=== PATIENT | male | born 1995 | race African-American/Black ===

== ENCOUNTER 2024-12-10 02:18 | Emergency (ER) | payer MEDICAID, SELFPAY ==
--- NOTE | ~2024-12-10 | XR_ITS ---
CLINICAL HISTORY: Multiple Lacerations; R o FB 2 view left femur Comparison: None provided Findings: No fractures or dislocations. No knee effusion. No significant arthritic change. No radiopaque foreign body. IMPRESSION: 1. Normal left femur This document has been electronically signed by: Michael Louise MD on 12/10/2024 04:30:15
[2024-12-10 02:24] VITALS: BP 138/88; PULSE 77; O2SAT 96
[2024-12-10 02:28] VITALS: BP 143/78; PULSE 63; RESP 20; TEMP 36.6; O2SAT 95; BMI 31.4
--- NOTE | 2024-12-10 02:52 | ED_ITS ---
HPI - Wound/Laceration General Chief Complaint: Wound/Laceration Stated Complaint: ETOH , leg injury , uncooperative Time Seen by Provider: 12/10/24 02:40 Source: patient Mode of arrival: ambulatory Limitations: no limitations History of Present Illness ED Provider: Emilio GOODE HPI narrative: The patient is a 29-year-old male presenting to the ED intoxicated reporting he drank alcohol and use marijuana, patient reports he leaned up against a window that broke and he fell through the window. Patient reports sustaining lacerations to the left thigh and right calf. Of note patient was found by EMS to be arguing with PD and EMS reports patient's story regarding how the injury occurred has changed multiple times. Related Data Allergies Allergy/AdvReac Type Severity Reaction Status Date / Time No Known Allergies Allergy Verified 12/10/24 02:38 Review of Systems Review of Systems: Yes all other systems are reviewed and are negative PMFSH Social History Social History Smoked in Last 30 Days: Yes Use of substances other than those prescribed or required for medical reasons: Yes Substance Use Type: Crack/Cocaine and Marijuana Advance Directives: No Advance Directives Information Provided: Yes Physical Exam Vital Signs: Vital Signs: Last Vital Signs Temp 97.5 F 12/10/24 06:08 Pulse 63 12/10/24 06:08 Resp 20 12/10/24 06:08 BP 129/72 12/10/24 06:08 Pulse Ox 98 12/10/24 06:08 O2 Del Method Room Air 12/10/24 06:08 BMI result Body Mass Index 31.4 CONSTITUTIONAL: The patient appears clinically intoxicated, otherwise non-toxic, well nourished and in no acute distress. Vital signs as documented. HEAD: Atraumatic, normocephalic. EYES: EOMs grossly intact, pupils equal, conjunctiva clear, no exudate. ENT: Nares patent, no discharge. Airway patent, no audible stridor, visible mucosa is pink and moist without noted lesions. NECK: trachea is midline, no obvious masses or gross abnormalities. CHEST: Symmetric movement, normal appearance. LUNGS: Non-labored work of breathing. CARDIAC: No evidence of hypoperfusion. ABDOMEN: Nondistended, no obvious injury. : Deferred. EXTREMITIES: There is a single superficial 4 cm laceration noted to the right posterior calf. There are 3 linear lacerations, all approximately 2-3 cm in length noted to the left anterolateral thigh. Distal CSM intact. Moves all extremities spontaneously without reported pain. No other obvious injury or deformity noted. NEURO: Alert and oriented x3, CN II-XII appear grossly intact. Cerebellar Functioning grossly intact. Speech clear and appropriate. SKIN: Warm, dry, color appropriate. No rashes or lesions noted. Course Course Course Narrative: GCS 15 stable for DC, clinically sober MC 12/10/24 856am Medications Administered Discontinued Medications Generic Name Dose Route Start Last Admin Trade Name Stacie PRN Reason Stop Dose Admin Bacitracin 1 appl 12/10/24 04:20 12/10/24 04:26 Bacitracin Oint 0.9 Gm Packet TOPICAL 12/10/24 04:21 1 appl ONCE ONE Administration Protocol Lidocaine/Epinephrine 10 ml 12/10/24 03:03 12/10/24 04:27 Lidocaine Hcl 2% Pf/Epi 1:200 20 Ml Vial INFILTRATI 12/10/24 03:04 10 ml ONCE ONE Administration Medical Decision Making Medical Decision Making MDM Narrative: 3:35 AM 12/10/2024 ([place] GOODE): The patient is a 29-year-old male presenting to the ED intoxicated reporting he drank alcohol and use marijuana, patient reports he leaned up against a window that broke and he fell through the window. Patient has suffered a laceration to the right calf and 3 lacerations to the left thigh. The patient's bleeding is controlled. Distal CSM intact. The patient's plain films showed no evidence of retained foreign body. We will repair lacerations and observe to sobriety. Admission/Observation Consideration of admission/observation: Escalation of care including admission/observation considered Independent Interpretation I performed an independent interpretation of an: Plain X-Ray (No foreign body) Procedures Laceration Right Calf: Site: lower extremity Side (If applicable): right Size (cm): 4 Description: linear and clean Depth: simple, single layer Local Anesthetic: lidocaine 1% Amount of anesthesia used (mL): 4 Pre-repair: wound explored, irrigated extensively and deep structures intact Skin layer closed with: nylon Size (cm): 3-0 Number of sutures: 7 Technique: simple, interrupted Left Thigh 1: Site: lower extremity Side (If applicable): left Size (cm): 3 Description: linear and clean Depth: simple, single layer Local Anesthetic: lidocaine 1% Amount of anesthesia used (mL): 2 Pre-repair: wound explored, irrigated extensively and deep structures intact Skin layer closed with: nylon Size (cm): 3-0 Number of sutures: 3 Technique: simple, interrupted Left Thigh 2: Site: lower extremity Side (If applicable): left Size (cm): 3 Description: linear and clean Depth: simple, single layer Local Anesthetic: lidocaine 1% Amount of anesthesia used (mL): 2 Pre-repair: wound explored, irrigated extensively and deep structures intact Skin layer closed with: nylon Size (cm): 3-0 Number of sutures: 3 Technique: simple, interrupted Left Thigh 3: Site: lower extremity Side (If applicable): left Size (cm): 3 Description: linear and clean Depth: simple, single layer Local Anesthetic: lidocaine 1% Amount of anesthesia used (mL): 2 Pre-repair: wound explored, irrigated extensively and deep structures intact Skin layer closed with: nylon Size (cm): 3-0 Number of sutures: 3 Technique: simple, interrupted Discharge Plan Discharge Clinical Impression: Laceration Alcohol intoxication Qualifiers: Complication of substance-induced condition: uncomplicated Qualified Code(s): F10.920 - Alcohol use, unspecified with intoxication, uncomplicated Patient Disposition: Home, Self-Care Instructions: Laceration (ED), Alcohol Intoxication (ED) Additional Instructions: Thank you for choosing [facility]'s Emergency Department for your care today. Your lacerations today appear noncomplicated. The lacerations were repaired with nonabsorbable sutures which will need to be removed in 7-10 days. Please return to the emergency department or follow-up with your primary care provider for removal of sutures. Please apply bacitracin and a clean dry dressing to the laceration twice daily for the first 2-3 days. Then please keep the area clean and dry, but uncovered and exposed to the air to allow the laceration to heal. While it is perfectly acceptable to allow water to run over the sutures while showering, please do not swim, or submerge the laceration in standing water until the sutures are removed. You may take alternating (staggered) doses of ibuprofen 600mg and Tylenol 1000mg every 4 hours as needed for any additional pain. Please rest the injured area, and apply ice for 20 minutes every hour. If you do not have a primary care physician, please call the [facility] at [phone] to establish a new primary care physician. While waiting to establish your new primary care physician, you can call our Walk-in [facility] at [phone] for non-emergency needs. Please return to the emergency department if you develop any uncontrollable bleeding, re-opening of your wound, redness advancing >1-2 cm away from your wound, or white milky discharge from your wound. Please also return if you experience any other new or worsening symptoms or concerns. Alcohol use disorder You were seen in the Emergency Department today for treatment of alcohol use disorder.? You may have been given medications to help with your withdrawal symptoms.? Please do not drink alcohol with them. This is very dangerous and can cause respiratory depression or other adverse reactions depending on the medication. If you would like to cut down or stop your alcohol use please consider calling our outpatient Addiction Treatment office:? [facility] (M-F [id number]) [address] [place] [address] [id number] ? You have also been given a list of treatment providers in the area that can assist as well.? If you experience seizures, vomiting blood, black stools, falls, severe headache, chest pain, fevers, trouble breathing, hallucinations or any other concerns you need to call 911 or seek immediate care. Please stay hydrated. Print Language: Cambodian
--- NOTE | 2024-12-10 03:24 | PC.NURSE ---
pt getting portable xray done when xray staff made this rn aware that a crack pipe was found in pts pocket. this rn called security to bedside for safety search on pt. per security pt secured crack pipe placed in sharps container. charge account clerk made aware
[2024-12-10] MEDS: Lidocaine HCl 2% PF/Epi 1:200 20 ML VIAL 10 ML INFILTRATI (04:27)
--- NOTE | 2024-12-10 05:45 | PC.NURSE ---
late entry- laceration repair performed by gladis. per gladis plan for pt is metabolize to freedom in am. 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
[2024-12-10 06:08] VITALS: BP 129/72; PULSE 63; RESP 20; TEMP 36.4; O2SAT 98
--- NOTE | 2024-12-10 06:39 | PC.NURSE ---
pt continues to deny SI /HI sleeping positioned on L side
[2024-12-10 09:09] VITALS: BP 125/87; PULSE 85; RESP 18; TEMP 36.4; O2SAT 98
[2024-12-10 09:13] VITALS: BP 125/87; PULSE 85; RESP 18; TEMP 36.4; O2SAT 98
== END 2024-12-10 09:14 | disposition home or self-care (01) ==
PROVIDERS: Emergency Provider Emergency Medicine
DX: S71.112A Laceration without foreign body, left thigh, initial encounter (principal); S71.111A Laceration without foreign body, right thigh, initial encounter; F10.10 Alcohol abuse, uncomplicated; W13.4XXA Fall from, out of or through window, initial encounter; Y93.89 Activity, other specified; Y92.89 Other specified places as the place of occurrence of the external cause; Y99.8 Other external cause status
CPT/HCPCS: 12005; 73552; 99284; J2004

== ENCOUNTER → 2024-12-10 03:02 | Outpatient (BNV) | payer MEDICAID, SELFPAY | PROVIDERS: Emergency Provider Emergency Medicine; Visit Provider Specialist | DX: M79.605 Pain in left leg (principal) | CPT/HCPCS: 73552 ==